=== PATIENT | female | born 1995 | race Caucasian/White ===

== ENCOUNTER 2017-05-06 02:45 | Emergency (ER) | payer MEDICAID, MEDICARE, OTHER ==
[~2017-05-06] VITALS: Ht 162.6 cm; Wt 106.6 kg
[2017-05-06 03:32] LABS: BILIRUBIN,URINE NEGATIVE (NEGATIVE); CLARITY,URINE VERY CLOUDY; COLOR,URINE YELLOW; GLUCOSE, URINE (UA) NEGATIVE (NEGATIVE); KETONES,URINE NEGATIVE (NEGATIVE); LEUKOCYTE ESTERASE ,URINE 1+ (NEGATIVE); NITRITE,URINE POSITIVE (NEGATIVE); PH,URINE 6 (5-9); PROTEIN,URINE 1+ (NEGATIVE); UROBILINOGEN,URINE 1 MG/DL (NORMAL)
[2017-05-06 03:38] LABS: BACTERIA,URINE LARGE /HPF; SQUAMOUS EPITHELIAL CELL,UR 25-50 /HPF; WBC,URINE 0-2 /HPF
[2017-05-06] MEDS ORDERED: HYOS0.1283 SL (03:48)
[2017-05-06] MEDS ORDERED: SUCR1TAB36 PO (03:48)
[2017-05-06] MEDS ORDERED: NITR-65 PO (03:48)
--- NOTE | 2017-05-06 03:49 | ED Abdominal Pain ---
General Chief Complaint: Abdominal/GI Problems Stated Complaint: AB PAIN Nursing Triage Note: PT REPORTS ABD PAIN X 1 WEEK. SHE REPORTS SHE HAD NOT BEEN TAKING HER MEDICATIONS FOR ABOUT 2 MONTHS, 1 WHICH WAS OMEPRAZOLE, AND JUST RESTARTED THEM. SHE IS ALSO REQUESTING A TEST. Sepsis Screen: No Definite Risk Source of Information: Patient History of Present Illness Date Seen by Provider: May 06, 2017 Time Seen by Provider: 03:07 Initial Comments PT C/O SHARP UPPER ABDOMINAL PAIN THAT GOES AROUND TO HER BACK X 1 WEEK HAD SAME THING IN JANUARY AND FEBRUARY. DID NOT SEEK CARE HAS NAUSEA AND OCCASIONAL VOMITING OFF AND ON SINCE JANUARY OR FEBRUARY NO FEVER NO URINARY PROBLEMS SYMPTOMS ARE NO DIFFERENT TODAY HAS NOT TAKEN ANYTHING FOR SYMPTOMS HAS NOT SOUGHT CARE FOR THIS PROBLEM PT HAS BEEN DX WITH GERD, BUT QUIT TAKING HER OMEPRAZOLE APPROXIMATELY 2 MONTHS AGO. SHE HAD NOT BEEN TAKING HER OTHER MEDICATIONS EITHER. PT WAS ADMITTED OT [facility] FROM 04/29-05/02 FOR SUICIDAL IDEATION/ATTEMPT. MEDS WERE RESTARTED PRIOR TO HER DISMISSAL FROM THERE --PT DENIES ANY CURRENT SUICIDAL IDEATIONS LMP 2 WEEKS AGO, NORMAL. PT IS HERE WANTING TEST. HAS NOT DONE HOME TEST. PCP: [facility]--HAD APPOINTMENT 05/02/17 BUT DID NOT GO SHE WAS BEING DISMISSED FROM PSYCH UNIT THAT DAY. HAS NOT ATTEMPTED TO RESCHEDULE Allergies and Home Medications Allergies Coded Allergies: sulfamethoxazole (Verified Allergy, Mild, rash, 05/06/17) trimethoprim (Verified Allergy, Mild, rash, 05/06/17) Home Medications Hyoscyamine Sulfate 0.125 Mg Tab.subl, 1-2 TAB SL Q4H, #15 Prescribed by: FRANCES MATHIS on 05/06/17 0348 Nitrofurantoin Monohyd/M-Cryst 100 Mg Capsule, 100 MG PO BID, #20 Prescribed by: FRANCES MATHIS on 05/06/17 0348 Sucralfate 1 Gm Tablet, 1 GM PO QIDACHS, #60 Prescribed by: FRANCES MATHIS on 05/06/17 0348 Review of Systems Constitutional: no symptoms reported Respiratory: No Symptoms Reported Cardiovascular: No Symptoms Reported Gastrointestinal: See HPI, Abdominal Pain, Denies Constipated, Denies Diarrhea , Nausea, Vomiting Genitourinary: No Symptoms Reported Musculoskeletal: see HPI, back pain Skin: no symptoms reported Psychiatric/Neurological: See HPI Endocrine: No Symptoms Reported Hematologic/Lymphatic: No Symptoms Reported Past Rafqrnc-Qrjtrq-Mjvmhg Hx Patient Social History Alcohol Use: Occasionally Uses Recreational Drug Use: No Smoking Status: Current Everyday Smoker (1 PPD) Type Used: Cigarettes 2nd Hand Smoke Exposure: Yes Recent Foreign Travel: No Contact w/Someone Who Travel: No Recent Infectious Disease Expo: No Recent Hopitalizations: Yes ([facility] 04/29-05/02/17) Seasonal Allergies Seasonal Allergies: No Surgeries History of Surgeries: No Respiratory History of Respiratory Disorde: No Cardiovascular History of Cardiac Disorders: No Neurological History of Neurological Disord: No Reproductive System Female Reproductive Disorders: Denies Genitourinary History of Genitourinary Disor: No Gastrointestinal History of Gastrointestinal Di: Yes Gastrointestinal Disorders: Gastroesophageal Reflux Musculoskeletal History of Musculoskeletal Dis: No Endocrine History of Endocrine Disorders: No HEENT History of HEENT Disorders: No Cancer History of Cancer: No Psychosocial History of Psychiatric Problem: Yes Behavioral Health Disorders: Anxiety, PTSD, Suicide Attempts, Schizophrenia, Depression Integumentary History of Skin or Integumenta: No Physical Exam Vital Signs VS - Last 72 Hours, by Label 05/06/17 03:00 Temp 96.1 Pulse 80 Resp 16 B/P (MAP) 130/89 (103) Pulse Ox 97 O2 Delivery Room Air Capillary Refill : Less Than 3 Seconds General Appearance: no apparent distress, obese, other (LAUGHING WITH FEMALE IN ROOM. LAYING COMPLETELY OUTSTRETCHED WITH ARMS OVER HEAD. WALKS UPRIGHT AND MOVES QUICKLY WITHOUT DIFFICULTY. 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, no motor/sensory deficits, alert, normal mood/affect, oriented x 3 Skin: normal color, warm/dry Progress/Results/Core Measures Results/Orders Lab Results Laboratory Tests Test 05/06/17 03:25 Range/Units Urine Color YELLOW Urine Clarity VERY CLOUDY H Urine pH 6 5-9 Urine Specific [place] 1.020 1.016-1.022 Urine Protein 1+ H NEGATIVE Urine Glucose (UA) NEGATIVE NEGATIVE Urine Ketones NEGATIVE NEGATIVE Urine Nitrite POSITIVE H NEGATIVE Urine Bilirubin NEGATIVE NEGATIVE Urine Urobilinogen 1 NORMAL MG/DL Urine Leukocyte Esterase 1+ H NEGATIVE Urine RBC (Auto) NEGATIVE NEGATIVE Urine RBC NONE /HPF Urine WBC 0-2 /HPF Urine Squamous Epithelial Cells 25-50 H /HPF Urine Crystals NONE /LPF Urine Bacteria LARGE H /HPF Urine Casts NONE /LPF Urine Mucus NEGATIVE /LPF Urine Culture Indicated YES My Orders Orders - FRANCES MATHIS DO Urine Bedside (05/06/17 03:06) Ua Culture If Indicated (05/06/17 03:06) Urine Culture (05/06/17 03:25) Antacid Suspension (Mylanta Suspension (05/06/17 03:45) Lidocaine 2% Viscous 15 Ml (Xylocaine Vi (05/06/17 03:45) Hyoscyamine Sl Tablet (Levsin Sl Tablet) (05/06/17 04:00) Hyoscyamine Sl Tablet (Levsin Sl Tablet) (05/06/17 03:57) Medications Given in ED Current Medications Medications Dose Ordered Sig/Omaira Route Start Time Stop Time Status Last Admin Dose Admin Hyoscyamine Sulfate 0.25 mg ONCE ONCE PO 05/06/17 04:00 05/06/17 04:31 DC 05/06/17 04:04 0.25 MG Vital Signs/I&O Vital Sign - Last 12Hours 05/06/17 03:00 Temp 96.1 Pulse 80 Resp 16 B/P (MAP) 130/89 (103) Pulse Ox 97 O2 Delivery Room Air Blood Pressure Mean: 103 Point of Care Testing Urine -Bedside: Negative Progress Note : Progress Note PT REFUSED MAALOX --STATES "SHE DOESN'T LIKE MINT AND IT SMELLS LIKE MINT" Departure Impression Impression: Primary Impression: UTI (urinary tract infection) Additional Impressions: Epigastric abdominal pain Hx of gastroesophageal reflux (GERD) Non-compliance Disposition: 01 HOME, SELF-CARE Condition: Stable Departure-Patient Inst. [place]: [facility] [place]ructions: Acid Reflux (Gastroesophageal Reflux Disease), Adult (DC) , Acute Abdomen (Belly Pain), Adult (DC), Urinary Tract Infection, Adult (DC) Add. Discharge Instructions: CLEAR LIQUIDS--WATER, BROTH, JELLO, GATORADE BRATS DIET--BANANAS, RICE, APPLESAUCE, TOAST, SALTINES FOLLOW UP WITH [facility] THIS WEEK FOR FURTHER CARE All discharge instructions reviewed with patient and/or family. Voiced understanding. Scripts Hyoscyamine Sulfate (Levsin-Sl) 0.125 Mg Tab.subl 1-2 TAB SL Q4H for Abdominal Pain, #15 TAB Prov: FRANCES MATHIS DO 05/06/17 Sucralfate (Carafate) 1 Gm Tablet 1 GM PO QIDACHS, #60 TAB Prov: FRANCES MATHIS DO 05/06/17 Nitrofurantoin Monohyd/M-Cryst (Macrobid 100 mg Capsule) 100 Mg Capsule 100 MG PO BID, #20 CAP Prov: FRANCES MATHIS DO 05/06/17 FRANCES MATHIS DO May 06, 2017 03:49
[2017-05-06] MEDS ORDERED: HYOSCYAMINE 0.125 MG (LEVSIN) TAB ONE (03:57)
[2017-05-06] MEDS: ANTACID SUSP 30 ML UDC (MYLANTA) PO ONE ×2 (04:00→04:04)
[2017-05-06] MEDS ORDERED: HYOSCYAMINE 0.125 MG (LEVSIN) TAB PO ONE (04:00)
[2017-05-06] MEDS: LIDOCAINE 2% VISCOUS 15 ML UDC PO ONE ×2 (04:00→04:04)
[2017-05-06 04:20] VITALS: BP 130/89
--- OUTSIDE RECORDS SUMMARY | 2017-05-09 10:58 | XMS REPORT ---
Author Author MARIS MCGUIRE Organization [employer] Address Unknown Phone Unavailable Care Team Providers Care Media Job Titles Name Role Phone MARIS MCGUIRE CP Unavailable Allergies, Adverse Reactions, Alerts Substance Reaction Event Type sulfa Info Not Available Non Drug Allergy latex Info Not Available Non Drug Allergy sodium benzoate Info Not Available Non Drug Allergy trimethorprim Info Not Available Non Drug Allergy Problems Problem Type Condition Code Onset Dates Condition Status Assessment Depression NEC 311 Active Assessment Incontinence of urine 788.30 Active Assessment GERD 530.81 Active Problem Unspecified hypothyroidism 244.9 Active Problem GERD 530.81 Active Problem Incontinence of urine 788.30 Active Problem Depression NEC 311 Active Assessment Limb / arm / leg pain 729.5 Active Problem knee pain 719.46 Active Problem Borderline personality disorder 301.83 Active Assessment aquired hypothyroidism 244.8 Active Assessment Allergic rhinitis due to unspecified cause 477.9 Active Assessment Borderline personality disorder 301.83 Active Medications Medication Code System Code Instructions Start Date End [place] [address] pamoate 25 mg orally daily in the morning 1 cap(s) fluticasone nasal NDC 89796 50 mcg/inh intranasally once a day Mar 22, 2014 1 spray(s) [place] [address] see frequency orally 150 mg in morning, 100 mg at bedtime 1 tab(s) levothyroxine NDC 78073 25 mcg (0.025 mg) orally once a day August 03, 2013 1 tab(s) clonidine NDC 33589 0.1 mg orally at bedtime 1 tab(s) Colace NDC 4971 sodium 100 mg orally daily as needed only 1 cap(s) Melatonin NDC 5609 3 mg orally once (at bedtime) 1 tab(s) Abilify Maintena NDC 267456 400 mg intramuscularly once a month 0 oxybutynin NDC 52037 5 mg orally 2 times a day May 01, 2013 1 tab(s) Intuniv NDC 484358 3 mg orally once a day (in the morning) 1 tab(s ) hydroxyzine NDC 19064 pamoate 50 mg orally daily at bedtime 1 cap( s) omeprazole NDC 51286 40 mg orally once a day as needed 1 cap(s) Abilify Maintena NDC 704396 400 mg intramuscularly once a month 0 ibuprofen NDC 69363 800 mg orally 2 times a day as needed 1 tab(s) diclofenac sodium NDC 55271 sodium 75 mg orally 2 times a day August 20, 2014 1 tab(s) Procedures Procedure Coding System Code Date Office Visit, estab pt, Level 4 CPT-4 75857 August 20, 2014 Vital Signs Date/Time: August 20, 2014 BMI 39.30 Index Weight 229 lbs Height 64 in Pain Scale 6-left arm and both knees 0-10 Blood Pressure Diastolic 68 mm Hg Blood Pressure Systolic 108 mm Hg Temperature 97.6 F Results No Known Results Summary Purpose [employer] Submission
--- OUTSIDE RECORDS SUMMARY | 2017-05-09 10:58 | XMS REPORT ---
Author Author MARIS MCGUIRE Organization [employer] Address Unknown Phone Unavailable Care Team Providers Care Mold Maintenance Technician Name Role Phone MARIS MCGUIRE CP Unavailable Allergies No Known Allergies Problems Problem Type Condition ICD-9 Code Onset Dates Condition Status Problem Unspecified hypothyroidism 244.9 Active Problem GERD 530.81 Active Problem Incontinence of urine 788.30 Active Problem Depression NEC 311 Active Assessment GERD 530.81 Active Problem knee pain 719.46 Active Problem Borderline personality disorder 301.83 Active Medications Medication Code System Code Instructions Start Date End Date Status Dosage omeprazole NDC 44765 40 mg orally once a day as needed 1 cap(s) Results No Known Results Summary Purpose [employer] Submission
--- OUTSIDE RECORDS SUMMARY | 2017-05-09 10:58 | XMS REPORT ---
Author Author DARRIUS COTTON Organization [employer] Address Unknown Phone Unavailable Care Team Providers Care Ice Handler Name Role Phone DARRIUS COTTON Unavailable Allergies No Known Allergies Problems Problem Type Condition ICD-9 Code Onset Dates Condition Status Assessment Incontinence of urine 788.30 Active Problem Unspecified hypothyroidism 244.9 Active Problem GERD 530.81 Active Problem Incontinence of urine 788.30 Active Problem Depression NEC 311 Active Assessment aquired hypothyroidism 244.8 Active Problem knee pain 719.46 Active Problem Borderline personality disorder 301.83 Active Medications Medication Code System Code Instructions Start Date End Date Status Dosage oxybutynin NDC 41889 5 mg orally 2 times a day May 01, 2013 1 tab(s) levothyroxine NDC 08418 25 mcg (0.025 mg) orally once a day August 03, 2013 1 tab(s) Results No Known Results Summary Purpose [employer] Submission
--- OUTSIDE RECORDS SUMMARY | 2017-05-09 10:58 | XMS REPORT ---
Author Author MARIS MCGUIRE Organization [employer] Address Unknown Phone Unavailable Care Team Providers Care Bricklayer Tender Name Role Phone MARIS MCGUIRE CP Unavailable Allergies, Adverse Reactions, Alerts Substance Reaction Event Type sodium benzoate Info Not Available Non Drug Allergy trimethorprim Info Not Available Non Drug Allergy sulfa Info Not Available Non Drug Allergy latex Info Not Available Non Drug Allergy Problems Problem Type Condition ICD-9 Code Onset Dates Condition Status Assessment Borderline personality disorder 301.83 Active Assessment Incontinence of urine 788.30 Active Assessment Depression NEC 311 Active Assessment aquired hypothyroidism 244.8 Active Assessment GERD 530.81 Active Problem Unspecified hypothyroidism 244.9 Active Problem GERD 530.81 Active Problem Incontinence of urine 788.30 Active Problem Depression NEC 311 Active 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 Problem knee pain 719.46 Active Problem Borderline personality disorder 301.83 Active Medications Medication Code System Code Instructions Start Date End Date Status Dosage ibuprofen NDC 86325 800 mg orally 3 times a day 1 tab(s) minocycline NDC 63532 50 mg orally 2 times a day 2 caps Colace NDC 4971 sodium 100 mg orally daily 1 cap(s) clonidine NDC 05372 0.1 mg orally at bedtime 1 tab(s) perphenazine NDC 73816 8 mg orally 2 times a day 1 tab(s) Intuniv NDC 872436 3 mg orally once a day (in the morning) 1 tab(s ) lamotrigine NDC 89173 see frequency orally 150 mg in morning, 100 mg at bedtime 1 tab(s) Melatonin NDC 5609 3 mg orally once (at bedtime) 1 tab(s) levothyroxine NDC 40209 25 mcg (0.025 mg) orally once a day August 03, 2013 1 tab(s) omeprazole NDC 91933 40 mg orally once a day 1 cap(s) fluticasone nasal NDC 01154 50 mcg/inh intranasally once a day Mar 22, 2014 1 spray(s) each nostril oxybutynin NDC 84821 5 mg orally 2 times a day May 01, 2013 1 tab(s) hydroxyzine NDC 02440 pamoate 50 mg orally daily at bedtime 1 cap( s) Abilify Maintena NDC 052217 400 mg intramuscularly once a month 0 hydroxyzine NDC 15876 pamoate 25 mg orally daily in the morning 1 cap(s) Abilify NDC 52923 30 mg orally daily at bedtime Apr 20, 2013 1 tab(s ) Procedures Procedure Coding System Code Date Office Visit, estab pt, Level 4 CPT-4 92161 June 17, 2014 Vital Signs Date/Time: June 17, 2014 BMI 38.96 Index Weight 227 lbs Height 64 in Pain Scale 5-knees 0-10 Blood Pressure Diastolic 70 mm Hg Blood Pressure Systolic 104 mm Hg Temperature 98.9 F Oximetry 98 % Results No Known Results Summary Purpose [employer] Submission
--- OUTSIDE RECORDS SUMMARY | 2017-05-09 10:58 | XMS REPORT ---
Author Author MARIS MCGUIRE Organization [employer] Address Unknown Phone Unavailable Care Team Providers Care Supervisor Refractory Products Name Role Phone MARIS MCGUIRE CP Unavailable Allergies, Adverse Reactions, Alerts Substance Reaction Event Type sodium benzoate Info Not Available Non Drug Allergy trimethorprim Info Not Available Non Drug Allergy sulfa Info Not Available Non Drug Allergy latex Info Not Available Non Drug Allergy Problems Problem Type Condition Code Onset Dates Condition Status Assessment GERD 530.81 Active Assessment Borderline personality disorder 301.83 Active Assessment Depression NEC 311 Active Assessment aquired hypothyroidism 244.8 Active Assessment Unspecified hypothyroidism 244.9 Active Problem Unspecified hypothyroidism 244.9 Active Problem GERD 530.81 Active Problem Incontinence of urine 788.30 Active Problem Depression NEC 311 Active Assessment Incontinence of urine 788.30 Active Problem knee pain 719.46 Active Problem Borderline personality disorder 301.83 Active Medications Medication Code System Code Instructions Start Date End Date Status Dosage omeprazole NDC 29635 40 mg orally once a day as needed 1 cap(s) Abilify NDC 16545 30 mg orally daily at bedtime Apr 20, 2013 1 tab(s ) Abilify Maintena NDC 395234 400 mg intramuscularly once a month 0 perphenazine NDC 57662 8 mg orally 2 times a day 1 tab(s) ibuprofen NDC 07893 800 mg orally 2 times a day as needed 1 tab(s) clonidine NDC 70767 0.1 mg orally at bedtime 1 tab(s) fluticasone nasal NDC 00373 50 mcg/inh intranasally once a day Mar 22, 2014 1 spray(s) each nostril hydroxyzine NDC 76499 pamoate 25 mg orally daily in the morning 1 cap(s) Melatonin NDC 5609 3 mg orally once (at bedtime) 1 tab(s) lamotrigine NDC 57068 see frequency orally 150 mg in morning, 100 mg at bedtime 1 tab(s) oxybutynin NDC 64248 5 mg orally 2 times a day May 01, 2013 1 tab(s) Colace NDC 4971 sodium 100 mg orally daily as needed only 1 cap(s) hydroxyzine NDC 15344 pamoate 50 mg orally daily at bedtime 1 cap( s) Intuniv NDC 329383 3 mg orally once a day (in the morning) 1 tab(s ) levothyroxine NDC 67292 25 mcg (0.025 mg) orally once a day August 03, 2013 1 tab(s) Procedures Procedure Coding System Code Date Office Visit, jet pt, Level 3 CPT-4 75386 July 07, 2014 Vital Signs Date/Time: July 07, 2014 BMI 39.48 Index Weight 230 lbs Height 64 in Pain Scale 0-denies 0-10 Blood Pressure Diastolic 70 mm Hg Blood Pressure Systolic 110 mm Hg Temperature 97.9 F Oximetry 99 % Results No Known Results Summary Purpose [employer] Submission
--- OUTSIDE RECORDS SUMMARY | 2017-05-09 10:58 | XMS REPORT ---
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 01529827 Problem Gastroesophageal reflux disease, esophagitis presence not specified K21.9 Active 984278750 ALLERGIES Substance Reaction Event Type Date Status Bactrim Hives Drug Allergy July, Active SOCIAL HISTORY Never Assessed PLAN OF CARE VITAL SIGNS MEDICATIONS Unknown Medications RESULTS No Results PROCEDURES No Known procedures IMMUNIZATIONS No Known Immunizations MEDICAL (GENERAL) HISTORY Type Description Date Medical History schizophrenia Medical History bipolar disorder Medical History insomnia Medical History PTSD Medical History Panic attacks Surgical History cyst removal on neck 2006 Hospitalization History attempted suicide-multiple times
--- OUTSIDE RECORDS SUMMARY | 2017-05-09 10:58 | XMS REPORT ---
Author Author DARRIUS COTTON [facility] [employer] Address Unknown Phone Unavailable Care Team Providers Care General Cleaner Name Role Phone DARRIUS COTTON Unavailable Allergies, Adverse Reactions, Alerts Substance Reaction Event Type sodium benzoate Info Not Available Non Drug Allergy trimethorprim Info Not Available Non Drug Allergy sulfa Info Not Available Non Drug Allergy latex Info Not Available Non Drug Allergy Problems Problem Type Condition Code Onset Dates Condition Status Assessment Chest pain, unspecified R07.9 Active Assessment Hypothyroidism, unspecified E03.9 Active Assessment Allergic rhinitis, unspecified J30.9 Active Problem Unspecified hypothyroidism 244.9 Active Problem GERD 530.81 Active Problem Incontinence of urine 788.30 Active Problem Depression NEC 311 Active Assessment Unspecified urinary incontinence R32 Active Problem knee pain 719.46 Active Problem Borderline personality disorder 301.83 Active Medications Medication Code System Code Instructions Start Date End Date Status Dosage Abilify Maintena NDC 19930827 400 mg intramuscularly once a month 0 diclofenac sodium NDC 90984 sodium 75 mg orally 2 times a day August 20, 2014 1 tab(s) Intuniv NDC 801978 3 mg orally once a day (in the morning) 1 tab(s ) clonidine NDC 60485 0.1 mg orally at bedtime 1 tab(s) hydroxyzine NDC 07702 pamoate 25 mg orally daily in the morning 1 cap(s) Melatonin NDC 5609 3 mg orally once (at bedtime) 1 tab(s) ibuprofen NDC 72783 800 mg orally 2 times a day as needed 1 tab(s) fluticasone nasal NDC 75320 50 mcg/inh intranasally once a day Mar 22, 2014 1 spray(s) each nostril Abilify Maintena NDC 19930827 400 mg intramuscularly once a month 0 hydroxyzine NDC 83369 pamoate 50 mg orally daily at bedtime 1 cap( s) Colace NDC 4971 sodium 100 mg orally daily as needed only 1 cap(s) lamotrigine NDC 54303 see frequency orally 150 mg in morning, 100 mg at bedtime 1 tab(s) levothyroxine NDC 98133 25 mcg (0.025 mg) orally once a day August 03, 2013 1 tab(s) oxybutynin NDC 51896 5 mg orally 3 times a day Jan 28, 2015 1 tab(s) omeprazole NDC 31123 40 mg orally once a day 1 cap(s) Procedures Procedure Coding System Code Date Office Visit, estab pt, Level 3 CPT-4 62775 Jan 28, 2015 Vital Signs Date/Time: Jan 28, 2015 BMI 39.30 Index Weight 229 lbs Height 64 in Pain Scale 7 0-10 Blood Pressure Diastolic 70 mm Hg Blood Pressure Systolic 106 mm Hg Temperature 97.4 F Oximetry 98 % Results No Known Results Summary Purpose [employer] Submission
--- OUTSIDE RECORDS SUMMARY | 2017-05-09 10:58 | XMS REPORT ---
Author Author MARIS MCGUIRE Organization [employer] Address Unknown Phone Unavailable Care Team Providers Care Paperboard Box Maker Name Role Phone MARIS MCGUIRE CP Unavailable Allergies No Known Allergies Problems Problem Type Condition ICD-9 Code Onset Dates Condition Status Problem Unspecified hypothyroidism 244.9 Active Problem GERD 530.81 Active Problem Incontinence of urine 788.30 Active Problem Depression NEC 311 Active Problem knee pain 719.46 Active Problem Borderline personality disorder 301.83 Active Medications No Known Medications Results No Known Results Summary Purpose [employer] Submission
--- OUTSIDE RECORDS SUMMARY | 2017-05-09 10:59 | XMS REPORT | Continuity of Care Document ---
Author Author [facility] Organization [facility] Address Unknown Phone Unavailable Allergies Active Description Code Type Severity Reaction Onset Reported/Identified Relationship to Patient Clinical Status Yes LATEX 91311 DRUG INGREDI Med Rash 06/18/2011 Yes SULFAMETHOXAZOLE W/TRIMETHOPRIM (CO-TRIMOXAZOLE) DRUG INGREDI High Anaphylaxis~Rash 02/24/2013 Yes FOOD 84918 DRUG INGREDI N/A NTV 06/18/2011 10/04/2016 Medications Medication Packaging Start Date Stop Date Route Dosage Sig TRAZODONE HCL 100 MG PO TABS Oral 100 BEDTIME PRN OLANZAPINE 10 MG PO TBDP 2016 Oral 10 2 TIMES DAILY PRN QUETIAPINE FUMARATE 25 MG PO TABS 10/04/2016 Oral 25 4 TIMES DAILY PRN MAGNESIUM HYDROXIDE 400 MG/5ML PO SUSP 10/04/2016 Oral 30 DAILY PRN ALUM T MAG HYDROXIDE-SIMETH 200-200-20 MG/5ML PO SUSP 10/04/2016 Oral 30 4 TIMES DAILY PRN ACETAMINOPHEN 325 MG PO TABS Oral 650 EVERY 6 HOURS PRN ASENAPINE MALEATE 5 MG SL SUBL Sublingual 5 BEDTIME HALOPERIDOL LACTATE 5 MG/ML IJ SOLN 10/04/2016 Intramuscular 5 EVERY 6 HOURS PRN DIPHENHYDRAMINE HCL 50 MG/ML IJ SOLN 10/04/2016 Intravenous 25 EVERY 6 HOURS PRN ASENAPINE MALEATE 5 MG SL SUBL Sublingual 5 2 TIMES DAILY CYPROHEPTADINE HCL 4 MG PO TABS 10/05/2016 Oral 4 BEDTIME DIPHENHYDRAMINE HCL 25 MG PO CAPS 10/06/2016 Oral 25 EVERY 6 HOURS PRN Problems Date Dx Coded Attending Type Code Diagnosis Diagnosed By 01/02/2015 A S61.219A Laceration without foreign body of unspecified finger without damage to nail, initial encounter Procedures There is no data. Results Test Result Range CBC WITH DIFF - 06/17/14 09:55 WBC 7.6 10*3/uL 4.0-10.8 RBC 5.01 10*6/uL 4.20-5.40 HGB 13.2 g/dL 12.0-16.0 HCT 40.5 % 37-47 MCV 81 fL 81-99 MCH 26 pg 26-34 MCHC 33 g/dL 31-37 PLATELET COUNT 229 10*3/uL 150-400 RDWCV 14.1 % 11.5-14.5 DIFF TYPE AUTOMATED DIFF NEUTROPHIL % 72 % 36-66 LYMPHOCYTE % 21 % 24-44 MONOCYTE % 6 % 1-10 EOSINOPHIL % 1 % 0-6 BASOPHIL % 1 % 0-2 ABS. NEUTROPHILS 5.5 10*3/uL 1.55-7.13 ABS. LYMPHOCYTES 1.6 10*3/uL 1.0-4.8 ABS. MONOCYTES 0.5 10*3/uL 0.4-1.08 ABS. EOSINOPHILS 0.0 10*3/uL 0.0-0.65 ABS. BASOPHILS 0.0 10*3/uL 0.0-0.11 ABSOLUTE NUCLEATED RBC 0.10 10*3/uL COMPREHENSIVE METABOLIC PANEL - 06/17/14 09:55 POTASSIUM 4.1 mmol/L 3.5-5.1 CALCIUM 9.2 mg/dL 8.6-10.6 GLUCOSE 105 mg/dL 70-115 BUN 23 mg/dL 8-22 CREATININE 0.8 mg/dL 0.6-1.1 SODIUM 137 mmol/L 136-145 CHLORIDE 107 mmol/L 98-110 CO2 20 mmol/L 22-29 GFR ESTIMATED NOT AFR/AM >60 GFR ESTIMATED IF AFR/AM >60 ALT-SGPT 14 U/L 0-55 AST-SGOT 14 U/L 5-34 TOTAL PROTEIN,SERUM 6.8 g/dL 6-8.3 ALBUMIN 4.2 g/dL 3.6-5.3 ALKALINE PHOSPHATASE 112 U/L 40-150 TOTAL BILIRUBIN 0.4 mg/dL 0.2-1.2 ANION GAP 10 5-15 GLOBULIN, CALCULATED 2.6 g/dL A/G RATIO 1.6 ratio 1-1.8 TSH WITH REFLEX TO FREE T4 - 06/17/14 09:55 TSH 3.23 m[iU]/mL 0.35-4.90 HEMOGLOBIN A1C - 06/17/14 09:55 HEMOGLOBIN A1C 5.1 % <5.6 ESTIMATED AVERAGE GLUCOSE 100 mg/dL DRUG SCREEN (8) MEDICAL - 10/06/16 23:55 AMPHETAMINE Negative Cutoff 1000 ng/mL Negative BARBITURATES Negative Cutoff 200 ng/mL Negative BENZODIAZEPINES Negative Cutoff 200 ng/mL Negative COCAINE (METABOLITE) Negative Cutoff 300 ng/mL Negative MDMA URINE Negative Cutoff 500 ng/mL Negative OPIATES Negative Cutoff 300 ng/mL Negative PCP Negative Cutoff 25 ng/mL Negative PH UA 5.0 5.0-8.0 SPECIFIC GRAVITY UA 1.008 1.003-1.030 THC Negative Cutoff 50 ng/mL Negative [id number] Chain of custody is on file at [facility], [place], [place] T4, FREE - 10/07/16 05:55 FREE T4 1.22 ng/dL 0.70-1.71 CBC WITH AUTO DIFFERENTIAL - 10/07/16 06:14 BASOPHILS RELATIVE PERCENT 0.4 % 0.0-2.5 EOSINOPHILS RELATIVE PERCENT 1.6 % <=5.0 HEMATOCRIT 41.9 % 34.9-44.5 HEMOGLOBIN 13.6 g/dL 12.0-15.5 LYMPHOCYTES RELATIVE PERCENT 36.2 % 22.0-49.0 MEAN CORPUSCULAR HEMOGLOBIN 26.7 pg 26.0-34.0 MEAN CORPUSCULAR HEMOGLOBIN CONC 32.5 g/dL 31.0-37.0 MEAN CORPUSCULAR VOLUME 82.3 fL 81.6-98.3 MONOCYTES RELATIVE PERCENT 5.6 % 2.0-9.0 NEUTROPHILS RELATIVE PERCENT 56.2 % 40.0-75.0 NUCLEATED RED BLOOD CELLS 0 /100 <=0 PLATELET COUNT 229 10E9/L 150-450 RED BLOOD CELL COUNT 5.09 10E12/L 3.90-5.03 RED CELL DISTRIBUTION WIDTH 12.7 % 11.9-15.5 [id number] 8.1 10E9/L 3.5-10.5 [id number] 2.93 10E9/L 0.90-2.90 [id number] 0.45 10E9/L 0.30-0.90 5503523 0.13 10E9/L 0.05-0.50 [id number] 4.55 10E9/L 1.70-7.00 [id number] 0.03 10E9/L 0.00-0.30 [id number] 0 % Encounters ACCT No. Visit Date/Time Discharge Status Pt. Type Provider Facility Loc./Unit Complaint [id number] 09/26/2014 16:24:00 09/26/2014 18:35:00 DIS Emergency [facility] FED [id number] 08/28/2014 23:15:00 08/29/2014 01:44:00 DIS Emergency [facility] FED [id number] 06/17/2014 15:29:55 06/17/2014 23:59:00 DIS Outpatient MARIS MCGUIRE [facility] [place] [id number] 08/28/2013 14:23:08 08/28/2013 23:59:00 DIS Outpatient MODESTA CARR [facility] [place] [id number] 08/09/2013 20:55:00 08/09/2013 21:48:[address] [facility] FED [id number] 01/02/2015 15:48:00 Document Registration [id number] 10/04/2016 17:33:00 10/07/2016 13:55:00 [facility] [id number] 10/04/2016 18:59:32 Document Registration
== END 2017-05-06 04:20 | disposition home or self-care (01) ==
LOC: EDUNIT# 02:45 → ER 02:50
DX: N39.0 Urinary tract infection, site not specified (principal); K21.9 Gastro-esophageal reflux disease without esophagitis; F41.9 Anxiety disorder, unspecified; F20.9 Schizophrenia, unspecified; F32.9 Major depressive disorder, single episode, unspecified; F43.10 Post-traumatic stress disorder, unspecified; F17.210 Nicotine dependence, cigarettes, uncomplicated; Z91.5 Personal history of self-harm; Z88.2 Allergy status to sulfonamides; Z91.19 Patient's noncompliance with other medical treatment and regimen; Z88.8 Allergy status to other drugs, medicaments and biological substances
CPT/HCPCS: 81000; 84703; 87088; 87186; 99283